=== PATIENT | male | born 1965 | race Caucasian/White ===

== ENCOUNTER 2024-05-15 23:35 | Inpatient (IN) | payer OTHER ==
[2024-05-16 01:02] VITALS: BMI 22.8
[2024-05-16] MEDS ORDERED: guaiFENesin 600 MG TABLET.ER (FP) PO PRN (02:04)
[2024-05-16] MEDS ORDERED: MAG HYDROX/AL HYDROX/SIMETH 30 ML UNIT-DOSE CUP PO PRN (02:04)
[2024-05-16] MEDS ORDERED: ONDANSETRON *ODT* 4 MG TABLET SL PRN (02:04)
[2024-05-16] MEDS ORDERED: LOPERAMIDE HCL 2 MG CAPSULE PO PRN (02:04)
[2024-05-16] MEDS ORDERED: BISMUTH SUBSALICYLATE 524 MG/30 ML PO PRN (02:04)
[2024-05-16] MEDS ORDERED: BENZOCAINE/MENTHOL (CHLORASEPTIC ) LOZENGE MM PRN (02:04)
[2024-05-16] MEDS ORDERED: DICYCLOMINE HCL 10 MG CAPSULE PO PRN (02:04)
[2024-05-16] MEDS ORDERED: NALOXONE (NARCAN) HCL 4 MG/0.1 ML SPRAY NS PRN (02:04)
[2024-05-16] MEDS ORDERED: POLYETHYLENE GLYCOL (HEALTHYLAX) 3350 17 GM PACKET PO PRN (02:04)
[2024-05-16] MEDS ORDERED: IBUPROFEN 400 MG TABLET (FP) PO PRN (02:04)
[2024-05-16] MEDS ORDERED: ACETAMINOPHEN 325 MG TABLET (FP) PO PRN (02:04)
[2024-05-16] MEDS ORDERED: hydrOXYzine PAMOATE 25 MG CAPSULE (FP) PO PRN (02:04)
[2024-05-16] MEDS ORDERED: BENZONATATE 200 MG CAPSULE PO PRN (02:04)
[2024-05-16] MEDS ORDERED: NALOXONE HCL 0.4 MG/ML VIAL IM PRN (02:04)
[2024-05-16] MEDS ORDERED: METHOCARBAMOL 500 MG TABLET PO PRN (02:04)
[2024-05-16] MEDS ORDERED: MAGNESIUM HYDROX 2400MG/30ML ORAL SUSPENSION 30 ML CUP PO PRN (02:04)
[2024-05-16] MEDS ORDERED: IBUPROFEN 600 MG TABLET (FP) PO PRN (02:04)
[2024-05-16] MEDS ORDERED: methaDONE HCL 40 MG DISPERSABLE TABLET PO ONE (09:18)
[2024-05-16] MEDS ORDERED: LORazepam 1 MG TABLET PO PRN (09:19)
[2024-05-16] MEDS: methaDONE HCL 10 MG TABLET PO ONE (09:20)
[2024-05-16] MEDS: PRENATAL VITAMINS W/ FOLIC ACID TABLET (FP) PO SCH (09:47)
[2024-05-16] MEDS: NICOTINE 21 MG/24 HOURS TOPICAL PATCH TD SCH (09:48)
[2024-05-16] MEDS: LORazepam 2 MG TABLET PO SCH (10:34)
[2024-05-16] MEDS ORDERED: methaDONE HCL 10 MG TABLET PO ONE (13:59)
[2024-05-16] MEDS: methaDONE HCL 40 MG DISPERSABLE TABLET PO ONE (14:31)
[2024-05-16] MEDS: methaDONE HCL 40 MG DISPERSABLE TABLET PO SCH (14:31)
[2024-05-16] MEDS: MELATONIN 5 MG TABLETS PO SCH (22:42)
[2024-05-16] MEDS: THIAMINE 100 MG TABLET PO SCH (22:42)
[2024-05-17] MEDS: diazePAM 5 MG TABLET PO SCH (10:20)
[2024-05-17 12:02] LABS: HEMATOCRIT 40.8 % (35.4-49); HEMOGLOBIN 13.5 GM/dL (11.7-16.9); PLATELET COUNT 129 10^3/uL (134-434); RBC 4.48 M/mm3 (4.00-5.60); RDW 14.8 % (11.9-15.9); WHITE BLOOD COUNT 6.2 K/mm3 (4.0-10.0)
[2024-05-17 12:25] LABS: ALBUMIN 3.7 g/dl (3.4-5.0); CALCIUM 9.1 mg/dL (8.5-10.1)
[2024-05-17 12:28] LABS: CREATININE 0.9 mg/dL (0.55-1.3)
[2024-05-17 12:30] LABS: BILIRUBIN,TOTAL 0.5 mg/dL (0.2-1); TOT PROT 6.9 g/dl (6.4-8.2)
[2024-05-17] MEDS ORDERED: SUVOREXANT 10 MG TABLET PO PRN (22:00)
[2024-05-17] MEDS: SUVOREXANT 10 MG TABLET PO PRN (22:14)
[2024-05-18] MEDS ORDERED: LORazepam 1 MG TABLET PO SCH (05:00)
[2024-05-18] MEDS: diazePAM 5 MG TABLET PO SCH (05:32)
[2024-05-18] MEDS: diazePAM 5 MG TABLET PO PRN (10:38)
[2024-05-19] MEDS ORDERED: LORazepam 0.5 MG TABLET PO PRN
[2024-05-19] MEDS ORDERED: LORazepam 0.5 MG TABLET PO SCH (05:00)
[2024-05-19] MEDS: diazePAM 5 MG TABLET PO SCH (05:43)
[2024-05-19] MEDS ORDERED: BISACODYL 5 MG TABLET.DR (FP) PO PRN (09:06)
[2024-05-19] MEDS ORDERED: NALOXONE (NYS OPIOID OVERDOSE PROGRAM) 4 MG/0.1 ML SPRAY NS PRN (14:23)
[2024-05-19] MEDS: NALOXONE (NYS OPIOID OVERDOSE PROGRAM) 4 MG/0.1 ML SPRAY NS ONE (15:24)
[2024-05-19] MEDS: NICOTINE POLACRILEX 2 MG GUM BUC PRN (17:41)
[2024-05-20] MEDS ORDERED: LORazepam 0.5 MG TABLET PO ONE (05:00)
[2024-05-20] MEDS: diazePAM 5 MG TABLET PO ONE (05:30)
[2024-05-20 06:13] VITALS: PULSE 80
[2024-05-20 08:54] VITALS: BP 120/82; RESP 18; TEMP 98.4
== END 2024-05-20 10:23 | disposition home or self-care (01) | DRG 773 ==
LOC: YASAS 23:35 → Y6N 05-16 02:48
PROVIDERS: ADMIT Allergy & Immunology; ATTEND Surgery
PROC: HZ2ZZZZ Detoxification Services for Substance Abuse Treatment (ICD-10-PCS; principal; 2024-05-16)
DX: F10.230 Alcohol dependence with withdrawal, uncomplicated (principal); F11.20 Opioid dependence, uncomplicated; F13.20 Sedative, hypnotic or anxiolytic dependence, uncomplicated; F17.210 Nicotine dependence, cigarettes, uncomplicated; F19.282 Other psychoactive substance dependence with psychoactive substance-induced sleep disorder; F19.24 Other psychoactive substance dependence with psychoactive substance-induced mood disorder; K59.00 Constipation, unspecified
CPT/HCPCS: 36415; 80053; 80305; 80307; 85027; 86780; 93005; 93010